=== PATIENT | male | born 1995 | race Two or more races ===

== ENCOUNTER 2022-11-20 09:18 | Emergency (ER) | payer SELFPAY ==
[2022-11-20] MEDS ORDERED: Fluorescein 1 MG Ophth Strip EYEBOTH ONE (09:39)
== END 2022-11-20 10:14 | disposition home or self-care (01) ==
LOC: JD.ED 09:18
DX: H10.023 Other mucopurulent conjunctivitis, bilateral (principal); Z72.0 Tobacco use
CPT/HCPCS: 99282; 99283